=== PATIENT | female | born 2000 | race Two or more races ===

== ENCOUNTER 2020-06-18 22:45 | Emergency (ER) | payer OTHER ==
[~2020-06-18] VITALS: Ht 149.9 cm; Wt 42.6 kg
[2020-06-18] MEDS ORDERED: LAMICTAL25 M1 (23:00)
[2020-06-18] MEDS ORDERED: ATIVAN2 M1 (23:00)
[2020-06-18] MEDS ORDERED: TRAZODONE HCL50 MG (23:01)
== END 2020-06-19 00:09 | disposition home or self-care (01) ==
LOC: ER 22:45
DX: M94.0 Chondrocostal junction syndrome [Tietze] (principal); F06.4 Anxiety disorder due to known physiological condition; R07.89 Other chest pain

== ENCOUNTER 2020-06-30 10:02 | Emergency (ER) | payer OTHER ==
[~2020-06-30] VITALS: Ht 149.9 cm; Wt 41.7 kg
[~2020-06-30 10:02] MED LIST: ATIVAN2 M1; LAMICTAL25 M1; TRAZODONE HCL50 MG
== END 2020-06-30 13:49 | disposition home or self-care (01) ==
LOC: ER 10:02
DX: R11.0 Nausea (principal); F06.4 Anxiety disorder due to known physiological condition; Z11.52 Encounter for screening for COVID-19

== ENCOUNTER 2020-09-17 15:45 | Emergency (ER) | payer OTHER ==
[~2020-09-17] VITALS: Ht 149.9 cm; Wt 43.1 kg
[2020-09-17] MEDS ORDERED: CORTISPORIN EAR10 M1 OPHT (15:56)
[2020-09-17] MEDS ORDERED: ALLEGRA-D 24 H1 EACH PO (18:23)
[2020-09-17] MEDS ORDERED: DUI500 PO (18:23)
== END 2020-09-17 19:25 | disposition home or self-care (01) ==
LOC: ER 15:45
DX: R09.81 Nasal congestion (principal); J01.90 Acute sinusitis, unspecified